=== PATIENT | male | born 1945 | race Caucasian/White ===

== ENCOUNTER 2022-03-18 14:35 | Emergency (ER) | payer MEDICARE, SELFPAY ==
[2022-03-18 14:41] VITALS: BP 132/59; PULSE 65; RESP 20; TEMP 36.4; O2SAT 98
--- NOTE | 2022-03-18 14:58 | ED.DENTAL ---
HPI - Dental/Oral General Chief complaint: Dental/Oral Stated complaint: left side swollen/pain Source: patient and RN notes reviewed History of Present Illness HPI Narrative: 76-year-old male presents to ED complaints of bilateral neck swelling for last 5 days. Patient states the swelling be intermittent and inconsistent decreased and plan patient states he takes his 5th toe which does did note this was. Patient also admits to getting a new Bridge placed last week. Patient% stenosis throughout. Patient also states the pain radiate up to his left knee. Denies any fevers, chills, chest pain, shortness of breath difficulty swallowing, difficulty breathing. Some parts of this dictation were generated by voice recognition software and may contain typographical and/or grammatical inaccuracies. Related Data Home Medications Medication Instructions Recorded Confirmed diltiazem HCl 180 mg mg PO 03/18/22 capsule,extended release 24 hr famotidine 03/18/22 finasteride 5 mg tablet mg 03/18/22 nintedanib 150 mg capsule (Ofev) mg PO 03/18/22 prasugrel 10 mg tablet mg 03/18/22 rosuvastatin 20 mg tablet mg 03/18/22 tamsulosin 0.4 mg capsule mg PO 03/18/22 Allergies Allergy/AdvReac Type Severity Reaction Status Date / Time clopidogrel [From Plavix] Allergy Swelling Verified 03/18/22 14:43 Review of Systems Review of Systems: CONSTITUTIONAL: Denies fever, chills, or sweats. EYES: Denies visual changes, redness, or discharge. ENT: Reports left ear pain and sore throat CARDIOVASCULAR: Denies chest pain, palpitations, or edema. RESPIRATORY: Denies cough or dyspnea. GASTROINTESTINAL: Denies abdominal pain, nausea, vomiting, or diarrhea. GENITOURINARY: Denies dysuria or hematuria. SKIN: Denies rash or itching. MUSCULOSKELETAL: Denies back pain, joint pain, or myalgia. NEUROLOGIC: Denies headache, numbness, or weakness. PMFSH Comments At the time of my signature, I reviewed and agree with the nursing past medical, surgical, social, and family history. There is no relevant family history pertinent to the patient complaint. Exam Narrative: GENERAL: This is a well-nourished, well-developed patient, in no apparent distress. HEAD: normocephalic, atraumatic. EYES: PERRL. Sclera clear/white. Vision is grossly intact. EARS: External ears normal, auditory canals clear and without drainage, TMs normal without perforation. Hearing grossly intact. NOSE: External nose normal with no obvious nasal discharge, nares without redness, no rhinorrhea. THROAT: Mucous membranes moist, posterior pharynx clear. No hardening or lifting of the soft palate. no dental abscesses noted. NECK: Neck noted to have anterior cervical lymphadenopathy bilaterally. CARDIOVASCULAR: Regular rate and rhythm without murmurs, gallops, or rubs. RESPIRATORY: Clear to auscultation. Breath sounds equal bilaterally. No wheezes, rales, or rhonchi. No stridor GASTROINTESTINAL: Abdomen soft, non-tender, nondistended. Bowel sounds are active. No hepato-splenomegaly, or palpable masses. No guarding. SKIN: warm, intact with no suspicious lesions or rash, good texture and turgor. NEURO: awake, alert, and oriented to person, place and time. There were no obvious focal neurologic abnormalities. Course Course Level of Care: Express Care Visit Vital Signs Vital signs: Vital Signs Temperature 97.5 F L 03/18/22 14:41 Pulse Rate 65 03/18/22 14:41 Respiratory Rate 20 03/18/22 14:41 Blood Pressure 132/59 L 03/18/22 14:41 Pulse Oximetry 98 03/18/22 14:41 Oxygen Delivery Room Air 03/18/22 14:41 Temperature 97.5 F L 03/18/22 14:41 Pulse Rate 65 03/18/22 14:41 Respiratory Rate 20 03/18/22 14:41 Blood Pressure 132/59 L 03/18/22 14:41 Pulse Oximetry 98 03/18/22 14:41 Oxygen Delivery Room Air 03/18/22 14:41 Reviewed MDM - Dental/Oral MDM Narrative Medical decision making narrative: Take the antibiotic as directed. Drink plenty of fluids
== END 2022-03-18 15:15 | disposition home or self-care (01) ==
PROVIDERS: Emergency Provider Nurse Practitioner Family
DX: R59.1 Generalized enlarged lymph nodes (principal); J44.9 Chronic obstructive pulmonary disease, unspecified; Z95.5 Presence of coronary angioplasty implant and graft
CPT/HCPCS: 99213; G0463

== ENCOUNTER 2022-03-28 13:15 | Outpatient (CLI) | payer MEDICARE, SELFPAY ==
--- NOTE | ~2022-03-28 | CT_ITS ---
EXAMINATION: CT soft tissue neck w con DATE: 03/28/2022 13:41 INDICATION: Sialolithiasis. TECHNIQUE: Computed tomography (CT) of the neck was performed with 75 mL Omnipaque-350 intravenous co ntrast. Automated exposure control and iterative reconstruction technique were employed. The dose-yamil gth product was 452.06 mGy-cm. COMPARISON: None FINDINGS: There is mild scarring at the lung apices. There is mild emphysema. There are likely change s of ocular lens replacement surgeries. There are no pathologically enlarged lymph nodes. There is pl aque in the proximal internal carotid arteries with less than 50% stenosis relative to normal distal artery lumen diameters. There is a 15 x 10 mm stone in the duct for left submandibular gland. There i s an electronic device in right anterior chest wall with electrode in the right floor of mouth. There is severe cervical spondylosis. IMPRESSION: 1. 15 mm stone in the duct for left submandibular gland. Reviewed, dictated and finalized at [facility]. [employer]
[2022-03-28 13:36] LABS: Estimated Glomerular Filt Rate > 60
== END 2022-03-28 13:16 | disposition home or self-care (01) ==
DX: K11.5 Sialolithiasis (principal)
CPT/HCPCS: 70491; Q9967

== ENCOUNTER 2023-04-16 14:16 | Emergency (ER) | payer MEDICARE, SELFPAY ==
--- NOTE | 2023-04-16 14:19 | ED.EAR ---
HPI - Ear Problem General Chief complaint: Ear Stated complaint: Ear Problem Source: patient and RN notes reviewed Mode of arrival: ambulatory Limitations: no limitations History of Present Illness HPI Narrative: Patient is a 77-year-old male who presents to the [facility] with complaints bilateral cerumen impaction. Patient states that he has had earwax impaction in the past. He states that his symptoms feel similar with bilateral ear pain. He denies ear drainage. Denies recent fever. Denies hearing deficit. Related Data Home Medications Medication Instructions Recorded Confirmed diltiazem HCl 180 mg mg PO 03/18/22 capsule,extended release 24 hr famotidine 03/18/22 finasteride 5 mg tablet mg 03/18/22 nintedanib 150 mg capsule (Ofev) mg PO 03/18/22 prasugrel 10 mg tablet mg 03/18/22 rosuvastatin 20 mg tablet mg 03/18/22 tamsulosin 0.4 mg capsule mg PO 03/18/22 azelastine 137 mcg (0.1 %) nasal intranasal 04/16/23 spray aerosol esomeprazole magnesium 40 mg mg 04/16/23 capsule,delayed release fexofenadine-pseudoephedrine ER tablet PO 04/16/23 180 mg-240 mg tablet,ext.release 24 hr (Savanah-D 24 Hour) montelukast 10 mg tablet mg 04/16/23 spironolactone 25 mg tablet mg 04/16/23 sucralfate 100 mg/mL oral 04/16/23 suspension umeclidinium 62.5 mcg/actuation inhalation 04/16/23 blister powder for inhalation (Incruse Ellipta) Allergies Allergy/AdvReac Type Severity Reaction Status Date / Time clopidogrel [From Plavix] Allergy Swelling Verified 04/16/23 14:39 Review of Systems Review of Systems: CONSTITUTIONAL: Denies fever, chills, or sweats. EYES: Denies visual changes, redness, or discharge. ENT: Reports otalgia but denies sore throat CARDIOVASCULAR: Denies chest pain, palpitations, or edema. RESPIRATORY: Denies cough or dyspnea. GASTROINTESTINAL: Denies abdominal pain, nausea, vomiting, or diarrhea. GENITOURINARY: Denies dysuria or hematuria. SKIN: Denies rash or itching. MUSCULOSKELETAL: Denies back pain, joint pain, or myalgia. NEUROLOGIC: Denies headache, numbness, or weakness. Pertinent positives per HPI. PMFSH Comments At the time of my signature, I reviewed and agree with the nursing past medical, surgical, social, and family history. There is no relevant family history pertinent to the patient complaint. Exam Narrative: GENERAL: This is a well-nourished, well-developed patient, in no apparent distress. HEAD: normocephalic, atraumatic. EYES: Sclera clear/white. Vision is grossly intact. EARS: External ears normal. Right auditory canals with moderate cerumen noted, Left TM erythematous without perforation. Right TM erythematous and bulging. Hearing grossly intact. NOSE: External nose normal with no obvious nasal discharge, nares without redness, no rhinorrhea. THROAT: Mucous membranes moist, posterior pharynx clear. NECK: Neck supple, non-tender without lymphadenopathy, masses or thyromegaly. CARDIOVASCULAR: Regular rate and rhythm without murmurs, gallops, or rubs. RESPIRATORY: Clear to auscultation. Breath sounds equal bilaterally. No wheezes, rales, or rhonchi. GASTROINTESTINAL: Abdomen soft, non-tender, nondistended. Bowel sounds are active. No hepato-splenomegaly, or palpable masses. No guarding. SKIN: warm, intact with no suspicious lesions or rash, good texture and turgor. NEURO: awake, alert, and oriented to person, place and time. There were no obvious focal neurologic abnormalities. Course Course Level of Care: Express Care Visit Vital Signs Vital signs: Vital Signs Temperature 97.6 F 04/16/23 14:28 Pulse Rate 75 04/16/23 14:28 Respiratory Rate 18 04/16/23 14:28 Blood Pressure 128/65 04/16/23 14:28 Pulse Oximetry 99 04/16/23 14:28 Oxygen Delivery Room Air 04/16/23 14:28 Temperature 97.6 F 04/16/23 14:28 Pulse Rate 75 04/16/23 14:28 Respiratory Rate 18 04/16/23 14:28 Blood Pressure 128/65 04/16/23 14
[2023-04-16 14:28] VITALS: BP 128/65; PULSE 75; RESP 18; TEMP 36.4; O2SAT 99
== END 2023-04-16 14:52 | disposition home or self-care (01) ==
PROVIDERS: Emergency Provider Nurse Practitioner
DX: H66.93 Otitis media, unspecified, bilateral (principal); H61.21 Impacted cerumen, right ear; H60.501 Unspecified acute noninfective otitis externa, right ear; E78.00 Pure hypercholesterolemia, unspecified; I10 Essential (primary) hypertension; J44.9 Chronic obstructive pulmonary disease, unspecified; K21.9 Gastro-esophageal reflux disease without esophagitis; Z95.5 Presence of coronary angioplasty implant and graft
CPT/HCPCS: 69210; 99213; G0463

== ENCOUNTER 2023-05-16 14:01 | Outpatient (CLI) | payer MEDICARE, SELFPAY ==
--- NOTE | ~2023-05-16 | CT_ITS ---
EXAMINATION: CT sinus wo con DATE: 05/16/2023 14:37 INDICATION: Sinusitis TECHNIQUE: Computed tomography (CT) of the paranasal sinuses was performed without contrast. Iterativ e reconstruction technique was employed. Exam dose: 361.28 mGy-cm total exam DLP. COMPARISON: None FINDINGS: There is minimal leftward bowing of the nasal septum. Bilateral surgical nasal antral windows and partial ethmoidectomies. Moderate soft tissue swelling of the nasal turbinates. The right frontal sinus is minimally developed. The paranasal sinuses otherwise are normally develope d and aerated. The mastoid air cells are well-developed and aerated bilaterally. IMPRESSION: Bilateral nasal antral windows and partial ethmoidectomies Patent ostiomeatal units and mastoid air cells Reviewed, dictated and finalized at [facility]. Reviewed, dictated and finalized at [facility].
== END 2023-05-16 14:02 | disposition home or self-care (01) ==
DX: J32.9 Chronic sinusitis, unspecified (principal)
CPT/HCPCS: 70486

== ENCOUNTER 2024-02-11 18:20 | Emergency (ER) | payer MEDICARE, SELFPAY ==
--- NOTE | 2024-02-11 18:23 | ED.URI ---
HPI - URI/Sore Throat General Chief Complaint: Upper Respiratory Infection Stated Complaint: cough/lots of drainage Time Seen by Provider: 02/11/24 18:46 Source: patient and RN notes reviewed Mode of arrival: ambulatory Limitations: no limitations History of Present Illness HPI Narrative: 78-year-old male with history of emphysema presents with concern for productive cough for about 5 days. He reports cough has gotten worse. He reports rhinorrhea nasal congestion. Denies fever. MD elicited complaint: cough Related Data Home Medications ?Medication ?Instructions ?Recorded ?Confirmed ?Last Taken ?Type diltiazem HCl 180 mg mg PO 03/18/22 Unknown History capsule,extended release 24 hr famotidine 03/18/22 Unknown History finasteride 5 mg tablet mg 03/18/22 Unknown History nintedanib 150 mg capsule (Ofev) mg PO 03/18/22 Unknown History prasugrel 10 mg tablet mg 03/18/22 Unknown History rosuvastatin 20 mg tablet mg 03/18/22 Unknown History tamsulosin 0.4 mg capsule mg PO 03/18/22 Unknown History Fish Oil 04/16/23 Unknown History albuterol 04/16/23 Unknown History aspirin 04/16/23 Unknown History azelastine 137 mcg (0.1 %) nasal intranasal 04/16/23 Unknown History spray esomeprazole magnesium 40 mg mg 04/16/23 Unknown History capsule,delayed release fexofenadine-pseudoephedrine ER tablet PO 04/16/23 Unknown History 180 mg-240 mg tablet,ext.release 24 hr (Savanah-D 24 Hour) folic acid 04/16/23 Unknown History montelukast 10 mg tablet mg 04/16/23 Unknown History spironolactone 25 mg tablet mg 04/16/23 Unknown History sucralfate 100 mg/mL oral 04/16/23 Unknown History suspension umeclidinium 62.5 mcg/actuation inhalation 04/16/23 Unknown History blister powder for inhalation (Incruse Ellipta) Allergies Allergy/AdvReac Type Severity Reaction Status Date / Time clopidogrel (From Plavix) Allergy Swelling Verified 02/11/24 18:33 ticagrelor (From Brilinta) Allergy Unknown Verified 02/11/24 18:33 Review of Systems Review of Systems: CONSTITUTIONAL: Denies malaise, chills, sweats, or fever. EYES: Denies visual changes, redness, or discharge. ENT: Reports rhinorrhea, congestion CARDIOVASCULAR: Denies chest pain, palpitations, or edema. RESPIRATORY: Reports productive cough. Denies dyspnea. GASTROINTESTINAL: Denies abdominal pain, nausea, vomiting, diarrhea SKIN: Denies rash or itching. MUSCULOSKELETAL: Denies myalgia. NEUROLOGIC: Denies headache. All systems reviewed & are unremarkable except as noted in HPI and below PMFSH Family History Family History (Updated 12/26/23 @ 09:18 by Kimberlyn Espinal RN) Father Acute myocardial infarction Grandparent Acute myocardial infarction Mother No problems noted. Grandparent Cancer Social History Social History Smoking packs per day: 1 Smoking cigarettes per day: 20.0 Years smoked: 30 Smoking pack-years: 30.00 Smoking status: Former smoker Tobacco type: cigarettes Comments At time of signature, agree with nursing past medical, surgical, social and family history. There is no relevant family history pertinent to the presenting complaint Exam Narrative: GENERAL: Well-appearing, well-nourished, and in no acute distress. HEAD: Normocephalic EYES: PERRLA, conjunctivae clear ENT: Nares clear. Mucous membranes moist. TM pearly dugan with dull light reflex bilaterally; no tragal tenderness. Oropharynx not erythematous without lesions. Tonsils not enlarged and without exudate, no drooling, no hoarseness, no trismus, uvula midline. NECK: Supple. No lymphadenopathy CHEST: Scattered inspiratory and expiratory wheeze, rhonchi in the right lower lobe. No rales, or stridor. No respiratory distress, speaks in full sentences. HEART: Regular rate and rhythm. No murmur heard. SKIN: Warm, dry, no rash. NEURO: Alert and oriented x3. PSYCH: Normal mood and affect Course Course Emergency Course: Patient is aware of diagnosis, understands and agrees to treatment plan. Anticipatory guidance given. Patient agrees to follow-up as directed and is aware of reasons to seek care at the emergency department. Portions of this record may have been created with voice recognition software Level of Care: Express Care Visit Vital Signs Vital signs: Reviewed. MDM - URI/Sore Throat MDM Narrative Medical decision making narrative: Differential diagnosis considered: Starkey virus, strep pharyngitis, allergic rhinitis, upper respiratory tract infection, sinusitis, rhinosinusitis, nasopharyngitis. viral pharyngitis, otitis media, otitis externa, pneumonia, bronchitis, viral cough syndrome, viral syndrome, and influenza. Exam findings show no acute concerns or changes; patient is non-toxic appearing and is in no distress. Patient is appropriate for outpatient treatment and follow-up. Lab Data Attestation: I reviewed the patient's lab results. Critical Care Time Critical Care Time Critical Care Time: No Discharge Plan Discharge Clinical Impression: Upper respiratory infection with cough and congestion Patient Disposition: Home, Self-Care Condition: Stable Instructions: Antibiotic Form, Acute Cough (ED) Additional Instructions: Take medication as prescribed Recommend antihistamine such as Benadryl at night time and Zyrtec or Savanah during the day Use your inhaler as needed for cough, wheezing, shortness of breath or chest tightness. Also, recommend symptomatic treatment includes: rest, fluids, and increase humidity of the air at home. Recommend Acetaminophen as directed on the bottle to reduce fever, pain, headache. Avoid smoking/second-hand smoke. Please schedule a follow-up visit with your personal physician for further evaluation and treatment within 3-5days. If your symptoms persist, change or worsen significantly before you can contact your personal physician then please, without delay, go to the emergency department for further evaluation. Patient Language: Micronesian Prescriptions: New azithromycin [Zithromax Z-Alpesh] 250 mg tablet See Rx Instructions .ROUTE .COMPLEX Qty: 6 0RF Rx Instructions: take 500 mg today (day 1), then 250 mg for 4 days (days 2-5) prednisone 20 mg tablet 40 mg PO DAILY 5 Days Qty: 10 0RF No Action diltiazem HCl 180 mg capsule,extended release 24hr PO tamsulosin 0.4 mg capsule PO finasteride 5 mg tablet rosuvastatin 20 mg tablet prasugrel 10 mg tablet Ofev 150 mg capsule PO famotidine spironolactone 25 mg tablet esomeprazole magnesium 40 mg capsule,delayed release(DR/EC) montelukast 10 mg tablet fexofenadine-pseudoephedrine [Savanah-D 24 Hour] 180-240 mg tablet extended release 24 hr PO Incruse Ellipta 62.5 mcg/actuation blister with device INHALATION sucralfate 100 mg/mL suspension azelastine 137 mcg (0.1 %) aerosol,spray INTRANASAL amoxicillin-pot clavulanate 875-125 mg tablet 1 tablet PO Q12H 10 Days Qty: 20 0RF ofloxacin 0.3 % drops 10 drp RIGHT EAR BID 7 Days Qty: 10 0RF Fish Oil albuterol aspirin folic acid Follow-up/Referrals: UNKNOWN,DOCTOR [Non-Staff] - Time of Disposition: 18:56
[2024-02-11 18:27] VITALS: BP 114/59; PULSE 71; RESP 22; TEMP 36.9; O2SAT 97
== END 2024-02-11 19:00 | disposition home or self-care (01) ==
PROVIDERS: Emergency Provider Nurse Practitioner
DX: J06.9 Acute upper respiratory infection, unspecified (principal); R05.9 Cough, unspecified; F17.210 Nicotine dependence, cigarettes, uncomplicated
CPT/HCPCS: 99213; G0463

== ENCOUNTER 2024-04-05 08:45 | Outpatient (RCR) | payer MEDICARE, SELFPAY ==
[2023-12-26 11:12] VITALS: PULSE 83
== END 2024-04-05 09:34 | disposition home or self-care (01) ==
LOC: ANHCPREHAB 08:45
DX: Z95.5 Presence of coronary angioplasty implant and graft (principal)
CPT/HCPCS: 93798